=== PATIENT | male | born 1980 | race Caucasian/White ===

== ENCOUNTER 2021-03-13 18:58 | Emergency (ER) | payer OTHER ==
[~2021-03-13] VITALS: Ht 188 cm; Wt 113.6 kg
[2021-03-13 19:23] VITALS: BP 131/65
== END 2021-03-13 22:56 | disposition home or self-care (01) ==
LOC: EMS 19:04
DX: F11.20 Opioid dependence, uncomplicated (principal)
CPT/HCPCS: 99281; Z7502

== ENCOUNTER 2021-03-14 19:17 | Emergency (ER) | payer OTHER ==
[~2021-03-14] VITALS: Ht 188 cm; Wt 113.6 kg
[2021-03-14 19:50] VITALS: BP 123/79
== END 2021-03-14 20:05 | disposition home or self-care (01) ==
LOC: EMS 19:21
DX: F11.20 Opioid dependence, uncomplicated (principal); F17.210 Nicotine dependence, cigarettes, uncomplicated; F12.90 Cannabis use, unspecified, uncomplicated; F19.90 Other psychoactive substance use, unspecified, uncomplicated
CPT/HCPCS: 99283

== ENCOUNTER 2021-04-03 14:16 | Emergency (ER) | payer MEDICAID, OTHER ==
[~2021-04-03] VITALS: Ht 188 cm; Wt 113.6 kg
[2021-04-03 14:22] VITALS: BP 109/58
== END 2021-04-03 15:20 | disposition home or self-care (01) ==
LOC: EMS 14:21
DX: H60.92 Unspecified otitis externa, left ear (principal); F17.210 Nicotine dependence, cigarettes, uncomplicated; F14.90 Cocaine use, unspecified, uncomplicated; F12.90 Cannabis use, unspecified, uncomplicated; F19.90 Other psychoactive substance use, unspecified, uncomplicated; Z88.0 Allergy status to penicillin
CPT/HCPCS: 99283; Z7502

== ENCOUNTER 2021-05-08 17:54 | Emergency (ER) | payer OTHER ==
[~2021-05-08] VITALS: Ht 188 cm; Wt 113.6 kg
[2021-05-08 18:00] VITALS: BP 121/62
== END 2021-05-08 19:21 | disposition home or self-care (01) ==
LOC: EMS 17:58
DX: H66.91 Otitis media, unspecified, right ear (principal); F17.210 Nicotine dependence, cigarettes, uncomplicated; F15.90 Other stimulant use, unspecified, uncomplicated; Z88.0 Allergy status to penicillin
CPT/HCPCS: 99283